=== PATIENT | male | born 1945 | race Caucasian/White ===

== ENCOUNTER → 2020-06-20 | Outpatient (CLI) | payer OTHER ==
[~2020-06-20] MED LIST: ASA81BEC PO; ISOSORBIDE DINI30 MG PO
== END ==
LOC: LAB 13:08
PROVIDERS: ATTEND Surgery Vascular Surgery
DX: Z01.812 Encounter for preprocedural laboratory examination (principal); Z20.828 Contact with and (suspected) exposure to other viral communicable diseases

== ENCOUNTER → 2020-06-20 | Outpatient (CLI) | payer OTHER | LOC: ULTRA 10:18 | PROVIDERS: ATTEND Surgery Vascular Surgery | DX: I87.2 Venous insufficiency (chronic) (peripheral) (principal) ==

== ENCOUNTER 2020-06-26 07:31 | Inpatient (IN) | payer OTHER ==
[2020-06-20 11:58] LABS: ABSOLUTE NEUTROPHILS 7.3 thou/uL (1.4-8.2); BASOPHILS 0.7 % (0.0-2.0); EOSINOPHILS 2.5 % (0.0-3.0); HEMATOCRIT 41.8 % (42.0-52.0); HEMOGLOBIN 14.3 gm/dL (14.0-18.0); LYMPHOCYTES 10.8 % (24.0-44.0); MCH 31.6 pg (26.0-34.0); MCHC 34.1 g/dL (28.0-37.0); MCV 92.6 fL (80.0-100.0); MONOCYTES 7.4 % (1.0-8.0); PLATELET COUNT 233 thou/uL (150-400); POLYS 78.6 % (36.0-66.0); RBC 4.51 mil/uL (4.50-6.00); RDW 12.7 % (10.5-14.5); WBC 9.2 thou/uL (4.0-11.0)
[2020-06-20 12:17] LABS: APTT 23.4 Seconds (24.5-32.8); INR 1.1; PROTIME 10.6 Seconds (9.3-11.4)
[2020-06-20 12:18] LABS: ALBUMIN 4.4 g/dL (3.4-5.0); CALCIUM 9.2 mg/dL (8.5-10.1); CREATININE 1.1 mg/dL (0.7-1.3); POTASSIUM 4.3 mmol/L (3.5-5.1); TOTAL BILIRUBIN 0.8 mg/dL (0.2-1.0); TOTAL PROTEIN 7.4 g/dL (6.4-8.2)
--- NOTE | 2020-06-20 12:29 | EKG ---
[facility] [place] [address] ELECTROCARDIOGRAM REPORT Name: CARLEYJODI Corrales Room #: PRE IN M.R.#: [id number] Admission: Attend Phys: Teodoro Hinojosa MD Discharge: Date of : 49 Report #: [id number] THIS REPORT FOR: cc: Nicolas Feliciano MD, [place] S. MD Santiago, Patrick MD [facility] ~ THIS REPORT FOR: //name// [facility] Test Date: 2020-06-20 Test Time: 11:55:08 Pat Name: JODI FENTON Department: Room: Gender: Security Tech: MARQUEZ THIBODEAUX : 1945 Requested By: Teodoro Hinojosa Order Number: [id number] MD: Beny Macdonald Measurements Intervals [place] Rate: 85 P: 52 NE: 203 QRS: -32 QRSD: 108 T: -14 QT: 387 QTc: 461 Interpretive Statements Sinus rhythm Left axis deviation Borderline T abnormalities, diffuse leads Baseline wander in lead(s) V3 No previous ECG available for comparison Electronically Signed On 06-20-2020 12:29:19 ADMINISTRATIVE SERVICES COORDINATOR by Beny Macdonald [email or web address] <ELECTRONICALLY SIGNED> By: Beny Macdonadl MD, FACC 06/20/20 1229 1155 1155 Beny Macdonald MD, [facility] /EPI
[2020-06-20 12:48] LABS: URINE BILIRUBIN NEGATIVE (Negative); URINE BLOOD NEGATIVE (Negative); URINE CLARITY CLEAR; URINE COLOR YELLOW; URINE GLUCOSE-RANDOM* NEGATIVE (Negative); URINE KETONES TRACE (Negative); URINE LEUKOCYTES-REFLEX NEGATIVE (Negative); URINE NITRITE-REFLEX NEGATIVE (Negative); URINE PROTEIN (DIPSTICK) TRACE (Negative); URINE SPECIFIC GRAVITY 1.025 (1.005-1.035); URINE UROBILINOGEN 0.2 E.U./dl (0.2-1.0)
[2020-06-21 00:06] LABS: GLYCOHEMOGLOBIN (HGB A1C) 5.3 % (4.8-5.6)
[~2020-06-26] VITALS: Ht 180.3 cm; Wt 78.8 kg
[2020-06-26 09:12] VITALS: BP 150/87
[2020-06-26 13:55] LABS: MCHC 33.5 g/dL (28.0-37.0); MCV 92.8 fL (80.0-100.0); RBC 2.69 mil/uL (4.50-6.00); RDW 12.8 % (10.5-14.5)
[2020-06-26 13:56] LABS: HEMOGLOBIN 8.4 gm/dL (14.0-18.0)
[2020-06-26 14:19] LABS: INR 1.7; PROTIME 17.2 Seconds (9.3-11.4)
[2020-06-26 14:20] LABS: FIBRINOGEN 100.6 mg/dL (210-360)
[2020-06-26 14:46] LABS: POC BE 1 mmol/L (-2.0 to +3.0); POC CA IONIZED 4.3 mg/dL (4.5-5.3); POC GLUCOSE 117 mg/dL (70-99); POC HCO3 25.2 mmol/L (22.0-26.0); POC HEMOGLOBIN 9.9 g/dL (14.0-18.0); POC SODIUM 141 mmol/L (136-145); POC pCO2 37.9 mmHg (35.0-45.0); POC pH 7.431 (7.360-7.450)
[2020-06-26 14:46] LABS: POC BE -1 mmol/L (-2.0 to +3.0); POC GLUCOSE 120 mg/dL (70-99); POC HCO3 23.6 mmol/L (22.0-26.0); POC HEMOGLOBIN 10.2 g/dL (14.0-18.0); POC POTASSIUM 4.2 mmol/L (3.5-5.1); POC SODIUM 141 mmol/L (136-145); POC pH 7.389 (7.360-7.450)
[2020-06-26 14:46] LABS: POC BE 1 mmol/L (-2.0 to +3.0); POC CA IONIZED 4.3 mg/dL (4.5-5.3); POC GLUCOSE 128 mg/dL (70-99); POC HCO3 25.6 mmol/L (22.0-26.0); POC HEMOGLOBIN 9.2 g/dL (14.0-18.0); POC POTASSIUM 4.9 mmol/L (3.5-5.1); POC SODIUM 141 mmol/L (136-145); POC pCO2 40.9 mmHg (35.0-45.0); POC pH 7.404 (7.360-7.450)
[2020-06-26 14:46] LABS: POC BE -2 mmol/L (-2.0 to +3.0); POC CA IONIZED 5.2 mg/dL (4.5-5.3); POC GLUCOSE 127 mg/dL (70-99); POC HCO3 23.3 mmol/L (22.0-26.0); POC HEMOGLOBIN 8.8 g/dL (14.0-18.0); POC POTASSIUM 4.2 mmol/L (3.5-5.1); POC SODIUM 140 mmol/L (136-145); POC pCO2 41.2 mmHg (35.0-45.0); POC pH 7.361 (7.360-7.450)
[2020-06-26 14:46] LABS: POC BE 0 mmol/L (-2.0 to +3.0); POC CA IONIZED 4.3 mg/dL (4.5-5.3); POC GLUCOSE 142 mg/dL (70-99); POC HCO3 25.4 mmol/L (22.0-26.0); POC HEMOGLOBIN 8.8 g/dL (14.0-18.0); POC POTASSIUM 4.7 mmol/L (3.5-5.1); POC SODIUM 141 mmol/L (136-145); POC pCO2 43.4 mmHg (35.0-45.0); POC pH 7.375 (7.360-7.450)
[2020-06-26 14:47] LABS: POC BE 0 mmol/L (-2.0 to +3.0); POC CA IONIZED 4.7 mg/dL (4.5-5.3); POC GLUCOSE 96 mg/dL (70-99); POC HCO3 24.4 mmol/L (22.0-26.0); POC HEMOGLOBIN 12.6 g/dL (14.0-18.0); POC POTASSIUM 4.1 mmol/L (3.5-5.1); POC SODIUM 140 mmol/L (136-145); POC pCO2 35.5 mmHg (35.0-45.0); POC pH 7.446 (7.360-7.450)
[2020-06-26 14:47] LABS: POC BE -2 mmol/L (-2.0 to +3.0); POC CA IONIZED 4.6 mg/dL (4.5-5.3); POC GLUCOSE 103 mg/dL (70-99); POC HCO3 23.6 mmol/L (22.0-26.0); POC HEMOGLOBIN 11.6 g/dL (14.0-18.0); POC POTASSIUM 4.2 mmol/L (3.5-5.1); POC SODIUM 140 mmol/L (136-145); POC pCO2 40.8 mmHg (35.0-45.0); POC pH 7.371 (7.360-7.450)
[2020-06-26 14:47] LABS: POC BE -2 mmol/L (-2.0 to +3.0); POC CA IONIZED 4.2 mg/dL (4.5-5.3); POC GLUCOSE 102 mg/dL (70-99); POC HCO3 22.7 mmol/L (22.0-26.0); POC HEMOGLOBIN 10.2 g/dL (14.0-18.0); POC POTASSIUM 4.8 mmol/L (3.5-5.1); POC SODIUM 138 mmol/L (136-145); POC pCO2 36.5 mmHg (35.0-45.0); POC pH 7.402 (7.360-7.450)
[2020-06-26 15:25] LABS: BE(vivo) -3.8 mmol/L (-2 to +3); HCO3 20.3 mmol/L (22.0-26.0); PCO2 33.8 mmHg (35.0-45.0); PO2 124.2 mmHg (80.0-100.0); pH 7.396 (7.360-7.450); sO2 98.5 % (92.0-98.0)
[2020-06-26 15:56] LABS: HEMATOCRIT 33.5 % (42.0-52.0); MCH 31.4 pg (26.0-34.0); MCHC 33.6 g/dL (28.0-37.0); MCV 93.4 fL (80.0-100.0); RBC 3.58 mil/uL (4.50-6.00); RDW 13.1 % (10.5-14.5); WBC 17.3 thou/uL (4.0-11.0)
[2020-06-26 15:59] LABS: HEMOGLOBIN 11.3 gm/dL (14.0-18.0)
[2020-06-26 16:04] LABS: CALCIUM 8.5 mg/dL (8.5-10.1); CREATININE 0.9 mg/dL (0.7-1.3); MAGNESIUM 2.3 mg/dL (1.8-2.4); POTASSIUM 4.3 mmol/L (3.5-5.1)
--- NOTE | 2020-06-26 16:26 | NUR ---
PATIENT ARRIVED TO ICU AROUND 1502 WITH CURRENCY EXCHANGE SPECIALIST, ANESTHESIA, NANO DAMON AND DR. PINK AT BEDSIDE. PATIENT RESTING NO GTTS ON AT THIS TIME. RN CALLING EKG, EKG DONE. BLOOD GAS RESULTS SHOWN TO DR. PINK AND NANO DAMON. NO MAJOR CONCERNS AT THIS TIME.
[2020-06-26 16:30] LABS: APTT 26.8 Seconds (24.5-32.8); INR 1.3; PROTIME 13.1 Seconds (9.3-11.4)
[2020-06-26 16:41] VITALS: BP 114/62
[2020-06-26 17:42] VITALS: BP 98/56
[2020-06-26 18:00] VITALS: BP 104/56
[2020-06-26 19:20] LABS: HCO3 18.7 mmol/L (22.0-26.0); PO2 108.2 mmHg (80.0-100.0); sO2 97.6 % (92.0-98.0)
[2020-06-26 19:20] LABS: CALCIUM 8.5 mg/dL (8.5-10.1); POTASSIUM 4.1 mmol/L (3.5-5.1)
[2020-06-26 19:27] LABS: pH 7.309 (7.360-7.450)
[2020-06-26 20:00] VITALS: BP 108/61
[2020-06-26 22:04] LABS: BE(vivo) -6.3 mmol/L (-2 to +3); HCO3 17.6 mmol/L (22.0-26.0); PCO2 29.9 mmHg (35.0-45.0); PO2 72.4 mmHg (80.0-100.0); pH 7.387 (7.360-7.450); sO2 94.7 % (92.0-98.0)
[2020-06-26 22:59] VITALS: BP 114/64
--- NOTE | 2020-06-26 23:00 | NUR ---
1899 - REPORT RECEIVED FROM MARQUEZ MCNEIL. PT IS INTUBATED AND IN CPAP MODE. PT IS AWAKE AND FOLLWING SIMPLE COMMANDS. 1917 - RT OBTAINED ABG'S WHILE STILL IN CPAP. 2011 - DR. PINK CALLED A NOTIFIED OF PTS ABG'S WELL GIVEN AN UPDATE. DR. PINK IS OKAY GOING FOWARD WITH EXTUBATION. 2024 - PT IS EXTUBATED BY RT, ART. 2224 - CALLED PTS DAUGHTER (JAVID) PER PTS REQUEST. DAUGHTER GIVEN AN UPDATE AND ANSWERED ALL QUESTIONS.
[2020-06-27] VITALS (13 sets, daily range): BP systolic 85–107; BP diastolic 47–63
[2020-06-27 05:34] LABS: HEMATOCRIT 30.6 % (42.0-52.0); HEMOGLOBIN 10.3 gm/dL (14.0-18.0); MCH 31.2 pg (26.0-34.0); MCHC 33.6 g/dL (28.0-37.0); MCV 92.9 fL (80.0-100.0); RBC 3.29 mil/uL (4.50-6.00); WBC 14.9 thou/uL (4.0-11.0)
[2020-06-27 05:44] LABS: CREATININE 1.1 mg/dL (0.7-1.3); MAGNESIUM 2.1 mg/dL (1.8-2.4)
--- NOTE | 2020-06-27 08:24 | NUR ---
Nutrition: S/P CABG x 5. Consult received. Will followup when out of ICU and closer to D/C.
--- NOTE | 2020-06-27 12:37 | NUR ---
ALERT AND ORIENTED, VITALS STABLE. HAS BEEN MEDICATED WITH PRN PAIN MEDS. UP TO THE CHAIR EARLIER TODAY AND ASSISTED BACL TO BED BY Zandra FRANCISCO AND PACER WIRES CAPPED PER ORDER. CHEST TUBES AND LALA DOCUMENTED, ANAHY WRAP REMOVED FROM LLE AND SCD APPLIED ON BLE. PATIENT'S DAUGHTER CAME TO VISIT. PROGRESSING WELL TOWARDS POC GOALS.
[2020-06-27 13:05] LABS: URINE BILIRUBIN NEGATIVE (Negative); URINE BLOOD 3+ (Negative); URINE GLUCOSE-RANDOM* NEGATIVE (Negative); URINE KETONES NEGATIVE (Negative); URINE LEUKOCYTES-REFLEX NEGATIVE (Negative); URINE NITRITE-REFLEX NEGATIVE (Negative); URINE PROTEIN (DIPSTICK) 1+ (Negative); URINE SPECIFIC GRAVITY >= 1.030 (1.005-1.035); URINE UROBILINOGEN 0.2 E.U./dl (0.2-1.0)
[2020-06-27 13:06] LABS: URINE CLARITY SL HAZY; URINE COLOR DK YELLOW
[2020-06-27 13:33] LABS: BACTERIA-REFLEX 1-9 Few /HPF (None Seen); CASTS None Seen /LPF (None Seen); CRYSTALS None Seen /LPF (None Seen); SQUAMOUS 0-3 Few /LPF (0-3); URINE WBC-REFLEX 0-5 Rare /HPF (0-5); YEAST-REFLEX Present (None Seen)
[2020-06-27 13:49] LABS: FOLIC ACID 16.3 ng/mL (8.6-58.9)
--- NOTE | 2020-06-27 14:04 | NUR ---
Patient admits CABGx5. Chart reviewed. Patient resides with xwife in multi level home. 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 Patient is retired. At dc plan to stay at sisters home. Therapy evals in process. Casemgt following for dc planning.
--- NOTE | 2020-06-27 18:29 | NUR ---
MS CTs AND ART LINE DC'D AND PATIENT TRANSFERRED TO RM 214 WITH BELONGINGS (SUITE CASE AND BAG OF CLOTHES/SHOES).
--- NOTE | 2020-06-27 19:33 | NUR ---
17:00 ARRIVED ON UNIT FROM ICU, TRANSFER. REPORT AT BEDSIDE. CHEST TUBE INTACT PUT UP TO SUCTION AT (-20MMGH) SITE IS C,D,I AND NO AIR AT SITE OF INSERTION. GIT HIS DINNER TRAY SET UP, REHEATED HIS FOOD AND GOT HIM TO CHAIR FOR DINNER, TOLERATES SUCH NO SOB, DENIES CP-NON CARDIAC. NSR NO ECTOPY.
[2020-06-28 00:06] LABS: GLYCOHEMOGLOBIN (HGB A1C) 5.3 % (4.8-5.6)
[2020-06-28 00:11] VITALS: BP 108/65
[2020-06-28 02:29] LABS: ABSOLUTE NEUTROPHILS 11.8 thou/uL (1.4-8.2); BASOPHILS 0.2 % (0.0-2.0); EOSINOPHILS 0.4 % (0.0-3.0); HEMATOCRIT 28.4 % (42.0-52.0); HEMOGLOBIN 9.6 gm/dL (14.0-18.0); LYMPHOCYTES 4.1 % (24.0-44.0); MCH 31.4 pg (26.0-34.0); MCHC 33.8 g/dL (28.0-37.0); MONOCYTES 8.5 % (1.0-8.0); PLATELET COUNT 117 thou/uL (150-400); POLYS 86.8 % (36.0-66.0); RBC 3.06 mil/uL (4.50-6.00); RDW 13.3 % (10.5-14.5); WBC 13.5 thou/uL (4.0-11.0)
[2020-06-28 02:35] LABS: CALCIUM 8.8 mg/dL (8.5-10.1); MAGNESIUM 2.2 mg/dL (1.8-2.4); POTASSIUM 4.4 mmol/L (3.5-5.1)
[2020-06-28 03:22] VITALS: BP 115/64
--- NOTE | 2020-06-28 04:33 | NUR ---
Assumed pt care at 2030. Pt is alert and oriented and sitting in chair. Chest tube in place. Pt is stable. No sign of distress noted in pt. Pt is transferred from bed to chair. Verbalizes pain, pain med administered upon request. Fall precaution in place. Scheduled med administered to pt. Tolerated PO intake. Continue to monitor. No acute events noted. Continue to monitor.
[2020-06-28 07:51] VITALS: BP 103/64
[2020-06-28 11:48] VITALS: BP 103/53
--- NOTE | 2020-06-28 11:57 | O ---
[facility] [place] [address] OPERATIVE REPORT Name: JODI FENTON Room #: 214-P ADM IN M.R.#: [id number] Admission: 06/26/20 Attend Phys: Teodoro Hinojosa MD Discharge: Date of : 49 Report #: [id number] THIS REPORT FOR: cc: Nicolas Feliciano MD, [place] S. MD Forman, John M. MD ~ DATE OF SERVICE: 06/26/2020 PREOPERATIVE DIAGNOSIS: Coronary artery disease. POSTOPERATIVE DIAGNOSIS: Coronary artery disease. OPERATION: Coronary artery bypass x 5 including left internal mammary artery to left anterior descending artery, saphenous vein to diagonal, marginal 1 and marginal 2, and saphenous vein to posterior descending artery. Endoscopic harvest, left greater saphenous vein. SURGEON: Teodoro Hinojosa MD SPORTS PSYCHOLOGIST: MARISOL Panda. ANESTHESIA: General. INDICATIONS: The patient is a 74-year-old seen for Dr. Grant. The patient has severe 3-vessel coronary artery disease. Left ventricular function is satisfactory overall with a basal inferior akinesis from an old right coronary occlusion. FINDINGS AND TECHNIQUE: After general anesthesia was established, saphenous vein was harvested using an endoscopic approach and prepared for use as a conduit. Left greater saphenous vein was harvested for use as a conduit using an endoscopic approach. Exposure was obtained through median sternotomy. Left internal mammary artery was harvested. The pericardial well was made. Cannulation sutures were placed. Heparin was given. Aorta was cannulated. Right atrium was cannulated. Cardioplegia needle was positioned in the aortic root. Retrograde cardioplegic catheter was placed in coronary sinus. Cardiopulmonary bypass was established. The aorta was cross clamped. Antegrade and retrograde cardioplegia were given. Ice was poured in the pericardial well. The heart was stopped. During electromechanical arrest, the distal anastomoses were performed and end-to-side anastomosis was made between vein and the posterior descending artery. Cold cardioplegia was given. Separate segment of vein was sewn in end-to-side fashion to the second marginal artery. Cold cardioplegia was given. The same segment of vein was sewn in end-to-side fashion to the first marginal [facility] [address] [place] [address] OPERATIVE REPORT Name: CARLEYAntoniJODI Room #: 214-P [facility] IN ..#: [id number] Admission: 06/26/20 Attend Phys: Teodoro Hinojosa MD Discharge: Date of : 49 Report #: [id number]. Cold cardioplegia was given. The same segment of vein was sewn in end-to-side fashion to the first diagonal artery. Cold cardioplegia was given. Left internal mammary artery was sewn in end-to-side fashion to left anterior descending artery. Patency of this vessel was checked with the temperature technique. Cold cardioplegia was given. Two proximal anastomoses were performed. When these were complete, warm retrograde cardioplegia was given followed by warm continuous blood to the coronary sinus. When this infusion was complete, the crossclamp was removed. De-airing maneuvers were performed. The anastomoses were inspected and found to be satisfactory. As the patient warmed, nice cardiac activity resumed, chest tubes and pacing wires were placed, a marker was placed around the proximal anastomoses. When the patient was warm, he was weaned from cardiopulmonary bypass. Venous cannula was removed. Protamine was given, the aortic cannula was removed. When hemostasis was satisfactory, chest was irrigated with antibiotic solution and closed in the usual fashion. The patient was taken to the Intensive Care Unit in good condition having tolerated the procedure well. All counts reported as correct. <ELECTRONICALLY SIGNED> By: Teodoro Hinojosa MD 06/28/20 1157 1709 1945 Teodoro Hinojosa MD /nt
[2020-06-28 15:56] VITALS: BP 107/56
--- NOTE | 2020-06-28 16:53 | NUR ---
ASSESSMENT CHARTED. MEDS PER SEP - GIVEN TYLENOL FOR CO'S OF PPAIN WITH GOOD RELIEF - PATIENT AMBULATED WITH PHYS THERAPY. REFUSED OCC THERAPY THIS AM. GLENN SMALL AMOUNTS OF DIET AND FLUIDS. PATIENT STATES THAT FOOD TASTES VERY DRY AND DOES NOT LIKE IT. ALSO STATES SLIGHT NAUSEA AT TIMES IN REGARDS TO FOOD - STATES IT "SWIRLS IN HIS STOMACH". HAS BEE UP IN THE CHAIR FOR THE DAY. DR PINK IN AT THE PRESENT TIME TO REMOVE TUBES ETC . NO CO'S AT THE PRESENT TIME.
--- NOTE | 2020-06-28 17:51 | NUR ---
CHEST TUBE- PACER WIRES AND R IJ REMOVED BY DR PINK, NEW SL STARTED IN LEFT FA.
[2020-06-28 19:30] VITALS: BP 107/69
[2020-06-29 00:07] VITALS: BP 110/70
[2020-06-29 04:30] VITALS: BP 123/60
[2020-06-29 07:55] VITALS: BP 96/59
[2020-06-29 11:40] VITALS: BP 119/61
--- NOTE | 2020-06-29 11:56 | NUR ---
PT RESTING QUIETLY IN BED ABLE TO REPOSITION SELF NEEDED, DENIES PAIN, VSS, USING IS, INCISIONS REMAIN CDI, DR ANTONIO ROUNDED ON PT THIS AM RECEIVED ORDER TO TANJA MOROCHO, ENCOURAGED PT TO INCREASE ACTIVITY, REORT GIVEN TO NEXT SHIFT TO CON'T PPOC,
[2020-06-29 15:43] VITALS: BP 108/65
[2020-06-29 16:05] LABS: ABSOLUTE NEUTROPHILS 8.6 thou/uL (1.4-8.2); BASOPHILS 0.5 % (0.0-2.0); EOSINOPHILS 1.7 % (0.0-3.0); HEMATOCRIT 30.5 % (42.0-52.0); HEMOGLOBIN 10.4 gm/dL (14.0-18.0); LYMPHOCYTES 6.3 % (24.0-44.0); MCH 31.8 pg (26.0-34.0); MCV 93.5 fL (80.0-100.0); PLATELET COUNT 156 thou/uL (150-400); POLYS 83.5 % (36.0-66.0); RBC 3.27 mil/uL (4.50-6.00); RDW 13.3 % (10.5-14.5); WBC 10.3 thou/uL (4.0-11.0)
[2020-06-29 16:26] LABS: CREATININE 0.9 mg/dL (0.7-1.3); PHOSPHORUS 1.6 mg/dL (2.5-4.9); POTASSIUM 3.8 mmol/L (3.5-5.1)
[2020-06-29 16:40] LABS: CALCIUM 8.7 mg/dL (8.5-10.1)
--- NOTE | 2020-06-29 17:57 | NUR ---
ASSESSMENT CHARTED - MEDS PER THEA - GLENN DIET AND FLUIDS. NO CO'S OF PAIN OR NAUSEA. HAS SPENT THE DAY UP IN THE CHAIR. MOROCHO CATH REMOVED THIS AFTERNOON AT 1630. ACCUCHECKS CHARTED - NOT RQUIRED COVERAGE. PT STATES HE IN COMFORTABLE AT THE PRESENT TIME. LALA REMAINS INSITU. NO CO'S AT PRESENT.
[2020-06-29 20:28] VITALS: BP 115/61
[2020-06-30 03:56] LABS: HEMATOCRIT 28.7 % (42.0-52.0); HEMOGLOBIN 9.9 gm/dL (14.0-18.0); MCH 31.9 pg (26.0-34.0); MCHC 34.4 g/dL (28.0-37.0); MCV 92.7 fL (80.0-100.0); RBC 3.1 mil/uL (4.50-6.00); WBC 10.6 thou/uL (4.0-11.0)
[2020-06-30 04:10] LABS: CALCIUM 8.5 mg/dL (8.5-10.1); CREATININE 0.8 mg/dL (0.7-1.3); POTASSIUM 3.7 mmol/L (3.5-5.1)
[2020-06-30 05:13] VITALS: BP 107/56
--- NOTE | 2020-06-30 05:34 | NUR ---
ASSUMED CARE OF THE PATIENT AT 1900; AOX4/CONFUSED AT TIMES; REQUIRES ASSIST X1/2 TO AMBULATE; SR ON THE MONITOR/ HR 70-80s; NO C/O OF PAIN; INCISIONAL SITES WITH DRESSINGS IN PLACE C/D/I; PLAN IS FOR PATIENT TO D/C TO HOME WHEN OK WITH DR. PINK; WILL CONTINUE TO MONITOR.
[2020-06-30 08:35] VITALS: BP 115/71
--- NOTE | 2020-06-30 13:03 | HC ---
[facility] [place] [address] CONSULTATION Name: JODI FENTON Room #: 214-P ADM IN M.R.#: [id number] Admission: 06/26/20 Attend Phys: Teodoro Hinojosa MD Discharge: Date of : 49 Report #: [id number] THIS REPORT FOR: cc: Nicolas Feliciano MD, [place] S. MD Blick, David R. MD [facility] ~ DATE OF SERVICE: 06/27/2020 CARDIOLOGY CONSULTATION HISTORY OF PRESENT ILLNESS: The patient is a 74-year-old single white male who I was asked to see in the hospital today after he had coronary artery bypass surgery. The history is obtained from the patient as well as some old records. The patient has a previous history of heart disease. However, this fall, he noticed when he exerted himself, he became short of breath. He also complained of discomfort in his chest when he exercised. He was noted to have an abnormal ECG and a positive family history for CAD. He was seen by my partner, Dr. Teodoro Grant. He performed a cardiac catheterization at [facility] on 05/12. This showed an ejection fraction of 50% with inferior wall severe hypokinesis. There was a 90% stenosis of the mid LAD. The first marginal branch circumflex had a 90% stenosis. The distal marginal branch was completely occluded, filled by bridging collaterals. The right coronary artery was occluded, filled by collaterals. He was felt to have severe 3-vessel coronary artery disease and Dr. Grant recommended coronary artery bypass surgery. The patient was seen by Dr. Teodoro Hinojosa and electively admitted yesterday to [facility] and had 5-vessel bypass surgery done. He was extubated following the surgery and today moved to the CCU. I was asked to see him for cardiac followup. He does note some soreness in his chest, but denies any shortness of breath, lightheadedness, nausea. PAST MEDICAL HISTORY: Otherwise significant only for hernia repair. He had no previous history of hypertension, diabetes, hyperlipidemia. MEDICATIONS: He previously was on no medications. After his heart catheterization, he was placed on Imdur and aspirin. ALLERGIES: He has no known drug allergies. FAMILY HISTORY: His sister had a coronary stent. SOCIAL HISTORY: He is single, although he lives with his ex- who apparently is from [place]. They live together in [place], [place] with her mother. 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 No history of smoking. No alcohol abuse. REVIEW OF SYSTEMS: No history of stroke, asthma, liver disease, kidney disease, [address] [address] CONSULTATION Name: JODI FENTON Room #: 214-P [facility] IN ..#: [id number] Admission: 06/26/20 Attend Phys: Teodoro Hinojosa MD Discharge: Date of : 49 Report #: [id number] cancer, psychiatric illness, chronic skin condition. PHYSICAL EXAMINATION: GENERAL: Revealed an elderly male, lying in bed. He appeared in no distress. VITAL SIGNS: Blood pressure is only 100/60, pulse is 80. He was afebrile. HEENT: He was anicteric. Conjunctivae pink. Mucous membranes moist. NECK: Veins do not appear distended. CHEST: Clear to auscultation. CARDIAC: Regular rate and rhythm. ABDOMEN: Soft. EXTREMITIES: Had no edema. SKIN: Warm and dry. NEUROLOGIC: Nonfocal. RADIOLOGICAL DATA: His ECG following surgeries showed a sinus rhythm, evidence of previous inferior infarction, but no acute ST or T-wave changes. The patient had a chest x-ray this morning that showed small left effusion, cardiomegaly, otherwise clear lung jaquez. LABORATORY WORK: Sodium 141, BUN 19, creatinine 1.1. Liver function studies were normal. White blood cell count 14.9. Preop hematocrit 41.8, today it is 30.6. IMPRESSION AND RECOMMENDATIONS: 1. Status post coronary artery bypass surgery. I would continue aspirin. I would not recommend a beta paola and/or ANAHY inhibitor because of low blood pressure. I would consider oral amiodarone to prevent atrial fibrillation. 2. Coronary artery disease. I would consider a statin drug. <ELECTRONICALLY SIGNED> By: Jono Peterson MD, FACC 06/30/20 1303 1759 0107 Jono Peterson MD, FACC /nt
[2020-06-30 13:07] VITALS: BP 109/57
[2020-06-30 16:00] VITALS: BP 91/53
[2020-06-30 17:47] VITALS: BP 91/53
--- NOTE | 2020-06-30 19:36 | NUR ---
progressing towards plan of care. patient ambulated in halls with therapies. tolerating meals well. encouraging oral fluid intake. plan for pain to go home tomorrow.
[2020-06-30 20:35] VITALS: BP 112/60
[2020-07-01 05:26] VITALS: BP 118/55
--- NOTE | 2020-07-01 06:03 | NUR ---
ASSUMED CARE OF THE PATIENT AT 1900; AOX4; SR ON THE MONITOR WITH HR IN 70s; LEG HARVEST SITES AND DRESSING ON CHEST C/D/I WITH NO C/O OF PAIN; PLAN IS FOR PATIENT TO D/C TO HOME TODAY; WILL CONTINUE TO MONITOR.
[2020-07-01 07:40] VITALS: BP 111/60
[2020-07-01] MEDS ORDERED: METOPROLOL TART25 MG PO (09:55)
[2020-07-01] MEDS ORDERED: ATORVASTATIN CA80 MG PO (09:59)
[2020-07-01] MEDS ORDERED: IRON325 PO (10:00)
[2020-07-01 11:30] VITALS: BP 111/60
--- NOTE | 2020-07-01 13:47 | NUR ---
DISCHARGE AND MEDICATION INSTRUCTIONS GIVEN TO PATIENT AND PATIENT DISCHARGED HOME.
--- NOTE | 2020-07-07 07:53 | EKG ---
[address] [place] [place] [address] ELECTROCARDIOGRAM REPORT Name: JODI FENTON Room #: 214-P [facility] IN ..#: [id number] Admission: 06/26/20 Attend Phys: Teodoro Hinojosa MD Discharge: 07/01/20 Date of : 49 Report #: [id number] [facility] Test Date: 2020-06-26 Test Time: 15:50:36 Pat Name: JODI FENTON Department: Room: 248 Gender: M Unit Coordinator: Radha BELTRAN : 1945 Requested By: Jhonatan Dejesus Order Number: [id number] MD: Beny Macdonald Measurements Intervals [place] Rate: 85 P: 63 [place]: 205 QRS: -31 QRSD: 108 T: 229 QT: 411 QTc: 489 Interpretive Statements Sinus rhythm Incomplete left bundle branch block Low voltage, precordial leads Borderline prolonged QT interval Compared to ECG 06/20/2020 11:55:08 Left bundle-branch block now present Low QRS voltage now present Left-axis deviation no longer present T-wave abnormality no longer present Electronically Signed On 06-27-2020 7:31:21 COMPUTER SYSTEMS DESIGN ANALYST by Beny Macdonald [email or web address] <ELECTRONICALLY SIGNED> By: Beny Macdonald MD, FACC 06/27/20 0731 1550 1550 Beny Macdonald MD, FACC /EPI
--- NOTE | 2020-07-07 07:53 | EKG ---
[address] [place] [address] ELECTROCARDIOGRAM REPORT Name: JODI FENTON Room #: 214-P [facility] IN ..#: [id number] Admission: 06/26/20 Attend Phys: Teodoro Hinojosa MD Discharge: 07/01/20 Date of : 49 Report #: [id number] [facility] Test Date: 2020-06-27 Test Time: 07:40:31 Pat Name: JODI FENTON Department: Room: 248 P Gender: M Exercise Planner: TANESHA : 1945 Requested By: Jhonatan Dejesus Order Number: [id number] MD: Dixon Roche Measurements Intervals [place] Rate: 80 P: 57 [place]: 200 QRS: -28 QRSD: 101 T: -38 QT: 390 QTc: 450 Interpretive Statements Sinus rhythm Borderline left axis deviation Low voltage, precordial leads Abnormal R-wave progression, early transition Borderline T abnormalities, inferior leads Compared to ECG 06/26/2020 15:50:36 Electronically Signed On 06-27-2020 10:46:[address]ROL OFFICER by Dixon Roche [email or web address] <ELECTRONICALLY SIGNED> By: Dixon Roche MD 06/27/20 1046 9 Dixon Roche MD /EPI
--- NOTE | 2020-07-07 07:54 | EKG ---
[address] [address] ELECTROCARDIOGRAM REPORT Name: JODI FENTON Room #: 214-[facility] IN ..#: [id number] Admission: 06/26/20 Attend Phys: Teodoro Hinojosa MD Discharge: 07/01/20 Date of : 49 Report #: [id number] [facility] Test Date: 2020-06-30 Test Time: ::14 Pat Name: JODI FENTON Department: Room: 214 Gender: M Formula Checker: TANESHA : 1945 Requested By: Jhonatan Dejesus Order Number: [id number] MD: Beny Macdonald Measurements Intervals [place] Rate: 79 P: 0 [place]: 198 QRS: -33 QRSD: 106 T: -29 QT: 442 QTc: 507 Interpretive Statements Sinus rhythm Left axis deviation Borderline T abnormalities, inferior leads Prolonged QT interval Compared to ECG 06/27/2020 07:40:31 Prolonged QT interval now present T-wave abnormality still present Electronically Signed On 06-30-2020 7:23:45 DIET ATTENDANT by Beny Macdonald [email or web address] <ELECTRONICALLY SIGNED> By: Beny Macdonald MD, FACC 06/30/20722 3 3 Beny Macdonald MD, [facility] /EPI
== END 2020-07-01 13:47 | disposition home or self-care (01) | DRG 236 ==
LOC: TBA 07:31 → ICU 07:31 → PRE 10:36 → ICU 15:54 → PRE 15:59 → 2N 06-27 17:19
PROVIDERS: Internal Medicine; Physician Assistant; ADMIT Surgery Vascular Surgery; ATTEND Surgery Vascular Surgery
PROC: 5A1221Z Performance of Cardiac Output, Continuous (ICD-10-PCS; principal; 2020-06-26)
PROC: 06BQ4ZZ Excision of Left Saphenous Vein, Percutaneous Endoscopic Approach (ICD-10-PCS; principal; 2020-06-26)
PROC: 02100Z9 Bypass Coronary Artery, One Artery from Left Internal Mammary, Open Approach (ICD-10-PCS; principal; 2020-06-26)
PROC: 021309W Bypass Coronary Artery, Four or More Arteries from Aorta with Autologous Venous Tissue, Open Approach (ICD-10-PCS; principal; 2020-06-26)
DX: I25.10 Atherosclerotic heart disease of native coronary artery without angina pectoris (principal); D62 Acute posthemorrhagic anemia; D72.829 Elevated white blood cell count, unspecified; E78.5 Hyperlipidemia, unspecified; R73.9 Hyperglycemia, unspecified; D69.6 Thrombocytopenia, unspecified; Z82.49 Family history of ischemic heart disease and other diseases of the circulatory system; Z79.82 Long term (current) use of aspirin; Z79.899 Other long term (current) drug therapy
CPT/HCPCS: 10081; 10204; 10797; 47000; 47001; 47002; 47297; 50249; 50409; 50456; 50498; 50668; 51301; 52131; 52259; 52287; 52314; 53327; 53358; 54118; 56455; 56524; 56525; 56526; 56527; 56528; 56531; 56534; 56668; 56719; 56760; 56898; 57093; 57116; 57167; 62110; 62950; 65003; 65047; 65090; 65130; 65135